=== PATIENT | female | born 1990 | race Caucasian/White ===

== ENCOUNTER 2020-01-15 14:00 | Emergency (ER) | payer OTHER | END 2020-01-15 14:32 | disposition home or self-care (01) | LOC: JVIRT 14:00 | DX: U07.1 COVID-19 (principal) | CPT/HCPCS: C9803; Q3014-GT; U0003 ==

== ENCOUNTER 2020-01-20 11:54 | Emergency (ER) | payer OTHER | END 2020-01-20 12:05 | disposition home or self-care (01) | LOC: JVIRT 11:54 | DX: Z03.818 Encounter for observation for suspected exposure to other biological agents ruled out (principal) | CPT/HCPCS: C9803; Q3014-GT; U0003 ==

== ENCOUNTER 2020-01-22 10:12 | Emergency (ER) | payer OTHER | END 2020-01-22 10:54 | disposition home or self-care (01) | LOC: JVIRT 10:12 | DX: U07.1 COVID-19 (principal) | CPT/HCPCS: C9803; G2012-GT; U0003 ==

== ENCOUNTER 2020-02-09 15:12 | Emergency (ER) | payer OTHER | END 2020-02-09 15:55 | disposition home or self-care (01) | LOC: JVIRT 15:12 | DX: R06.02 Shortness of breath (principal); Z11.59 Encounter for screening for other viral diseases | CPT/HCPCS: 36415; 86769; C9803; G2012-GT; Q3014-GT; U0003 ==

== ENCOUNTER 2020-05-19 12:31 | Emergency (ER) | payer OTHER | END 2020-05-19 13:00 | disposition home or self-care (01) | LOC: JVIRT 12:31 | DX: Z20.822 Contact with and (suspected) exposure to COVID-19 (principal) | CPT/HCPCS: 36415; 86769; C9803; G2251-GT; Q3014-GT; U0003 ==